=== PATIENT | male | born 1940 | race Caucasian/White ===

== ENCOUNTER 2025-05-28 07:50 | Day surgery (SDC) | payer MEDICARE ==
[~2025-05-28] VITALS: Ht 172.7 cm; Wt 83.6 kg
[~2025-05-28 07:50] MED LIST: AMIO200T54 PO; CLOP75TA2 PO; LOSA25TA13 PO; METO1TAB7 PO; PANT40TA29 PO; ROSU10TA61 PO; SPIR-10 PO; ceFAZolin SOD 2 GM IV ONCE IV ONE
[2025-05-28] MEDS ORDERED: ECOT81TA5 PO (08:31)
[2025-05-28] MEDS ORDERED: LR 1,000 ML IV SCH (08:35)
[2025-05-28] MEDS ORDERED: LIDOCAINE 2% 100 MG/5 ML SDV (FOR ANES.) As Ordered ONE (10:36)
[2025-05-28] MEDS ORDERED: GLYCOPYRROLATE INJ 0.2 MG/ML 2 ML VIAL As Ordered ONE (11:07)
[2025-05-28] MEDS ORDERED: MORPHINE 2 MG/ML 1 ML VIAL IV PRN (11:30)
[2025-05-28] MEDS ORDERED: HYDROMORPHONE HCL 0.5 MG/0.5 ML SYRINGE IV PRN (11:30)
[2025-05-28] MEDS ORDERED: MACR100C43 PO (11:31)
[2025-05-28] MEDS ORDERED: PYRI1TAB5 PO (11:31)
[2025-05-28] MEDS ORDERED: OXYB5TAB14 PO (11:31)
[2025-05-28 12:41] VITALS: BP 151/66; TEMP 97; O2SAT 99
== END 2025-05-28 12:42 | disposition home or self-care (01) ==
LOC: M SDC 07:50
PROVIDERS: ATTEND Urology
DX: C67.3 Malignant neoplasm of anterior wall of bladder (principal); N30.80 Other cystitis without hematuria; I48.91 Unspecified atrial fibrillation; Z87.891 Personal history of nicotine dependence; Z79.899 Other long term (current) drug therapy
CPT/HCPCS: 52235; 88305; J1596; J3010

== ENCOUNTER → 2025-09-02 | Outpatient (REF) | payer MEDICARE ==
[~2025-09-02] MED LIST changes: +ECOT81TA5 PO; +MACR100C43 PO; +OXYB5TAB14 PO; +PYRI1TAB5 PO; -ceFAZolin SOD 2 GM IV ONCE IV ONE
[2025-09-02 17:46] LABS: APPEARANCE, URINE CLEAR (CLEAR); BACTERIA, URINE AUTO NEGATIVE (NEGATIVE); BILIRUBIN, URINE AUTO NEGATIVE (NEGATIVE); BLOOD, URINE BLOOD NEGATIVE (NEGATIVE); GLUCOSE, URINE (UA) AUTO NEGATIVE (NEGATIVE); KETONE, URINE AUTO NEGATIVE (NEGATIVE); LEUKOCYTE ESTERASE, URINE AUTO NEGATIVE (NEGATIVE); MUCUS, URINE SMALL (NEGATIVE); NITRITE, URINE AUTO NEGATIVE (NEGATIVE); PROTEIN, URINE AUTO 1+ mg/dL (NEGATIVE); RBC, URINE AUTO 3 /HPF (0-3); SPECIFIC GRAVITY URINE AUTO 1.024 (1.002-1.035); SQUAMOUS EPITHELIAL CELL UR AU 1 /HPF (0-6); UROBILINOGEN, URINE AUTO 2.0 mg/dL (0.0-2.0); WBC, URINE AUTO 4 /HPF (0-3)
== END ==
LOC: M SMT 17:03
PROVIDERS: ATTEND Urology
DX: Z85.51 Personal history of malignant neoplasm of bladder (principal)

== ENCOUNTER 2025-10-26 10:31 | Day surgery (SDC) | payer MEDICARE ==
[~2025-10-26] VITALS: Ht 172.7 cm; Wt 85.7 kg
[~2025-10-26 10:31] MED LIST changes: +ACETAMINOPHEN 1000MG/100ML IV BAG As Ordered ONE; +ASPI81TA26 PO; +LEVO25TA5 PO; +LIDOCAINE 2% 100 MG/5 ML SDV (FOR ANES.) As Ordered ONE; +ONDANSETRON 4MG/2ML VIAL As Ordered ONE; -ROSU10TA61 PO; +ROSU10TA90 PO; +dexAMETHasone 4 MG/ML 1 ML VIAL As Ordered ONE
[2025-10-26] MEDS: LR 1,000 ML IV SCH (11:14)
[2025-10-26] MEDS: ceFAZolin SOD 2 GM IV ONCE IV ONE (11:18)
[2025-10-26] MEDS ORDERED: ROCURONIUM BROMIDE 50MG/5ML VIAL As Ordered ONE (11:19)
[2025-10-26] MEDS ORDERED: SUGAMMADEX SODIUM 500 MG/5 ML VIAL As Ordered ONE (11:39)
[2025-10-26] MEDS: MITOMYCIN 40MG IN 40ML SWFI SYRINGE INTRAVESIC ONE (11:46)
[2025-10-26] MEDS ORDERED: ONDANSETRON 4MG/2ML VIAL IV PRN (11:55)
[2025-10-26] MEDS ORDERED: HYDROMORPHONE HCL 0.5 MG/0.5 ML SYRINGE IV PRN (11:55)
[2025-10-26] MEDS ORDERED: LR 1,000 ML IV SCH (11:55)
[2025-10-26 12:40] VITALS: BP 125/78; TEMP 97.6; O2SAT 95
== END 2025-10-26 13:18 | disposition home or self-care (01) ==
LOC: M SDC 10:31
PROVIDERS: ATTEND Urology
DX: C67.8 Malignant neoplasm of overlapping sites of bladder (principal); I48.91 Unspecified atrial fibrillation; Z85.51 Personal history of malignant neoplasm of bladder; I10 Essential (primary) hypertension; E78.00 Pure hypercholesterolemia, unspecified; Z79.82 Long term (current) use of aspirin; Z79.899 Other long term (current) drug therapy; Z95.1 Presence of aortocoronary bypass graft; Z85.46 Personal history of malignant neoplasm of prostate; Z86.73 Personal history of transient ischemic attack (TIA), and cerebral infarction without residual deficits; Z92.21 Personal history of antineoplastic chemotherapy; Z79.890 Hormone replacement therapy
CPT/HCPCS: 51720; 52240; 88305; J0131; J0688; J1100; J2405; J3010; J9280